=== PATIENT | female | born 1985 | race Caucasian/White ===

== ENCOUNTER 2020-04-24 17:05 | Observation (INO) ==
--- OUTSIDE RECORDS SUMMARY | 2020-04-24 17:09 | External Medical Summary | Continuity of Care Document ---
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 83) (O24.419) Grand multiparity with current in third trimester (659.43) (O09.43) Post term over 40 weeks (645.10) (O48.0) Supervision of high-risk with grand multiparity in third trimester (V23.3) (O09.43) Allergies and Adverse Reactions No Known Drug Allergies (Allergy) Medications Vitamins Suzanne ANDERSON Refills: 0 Procedures History of Sinus Surgery Status: Complet ed History of Supervision of normal Status: Completed History of wisdom tooth extraction Statu s: Completed Immunizations Immunizations not documented Family History Unknown Family Member No pertinent family history (V49.89) (Z78.9) Status: Active Comments: Family History Social History - Smoking Status Never smoked tobacco Plan of Treatment Planned Observations Planned Goals not documented Results No Known Results Results not documented
[2020-04-24] MEDS ORDERED: SODIUM CHLORIDE 0.9% 250 ML IV PRN ×2 (17:22→18:00)
[2020-04-24] MEDS ORDERED: SODIUM CHLORIDE 0.9% 1000ML 1,000 ML IV ONE (17:22)
--- NOTE | 2020-04-24 17:27 | Emergency Department Note ---
Impression & Plan Incomplete , Maternal hemorrhaging affecting delivery, COVID-19 ED Provider Note NAME: KARYNA NEGRON AGE: 34 SEX: F : 1985 ARRIVES VIA: Ambulance INFORMANT: Patient ED PROVIDER(S): Elieser Cisse DO CHIEF COMPLAINT: Vaginal bleeding HPI: Patient is a 34-year-old female G7, P6 with a last menstrual period on January 22 and expected due date of October 29 has been following with glaucoma specialist at home who presents the ER with vaginal bleeding that started last night. Manager Background was unable to to obtain heart rate this past Tuesday. Cramping vaginal bleeding started last night. [place] like a normal period in through about 2 PM today. Since then she has been actively bleeding and passing clots. She denies any headache or chest pain. No shortness of breath nausea vomiting or diarrhea. No other exacerbating or remitting factors. ROS: See above HPI for pertinent positives & negatives. A total of 10 systems reviewed and were otherwise negative. PAST MEDICAL HISTORY:See Below PAST SURGICAL HISTORY:See Below FAMILY HISTORY:See Below SOCIAL HISTORY:See Below HOME MEDICATIONS:See Below ALLERGIES:See Below VITALS:See Below PHYSICAL EXAMINATION: GENERAL: Sitting up in bed, alert, moderate distress, large amount of blood in the vaginal region EYE EXAM: normal conjunctiva. OROPHARYNX: no exudate, no erythema, lips, buccal mucosa, and tongue normal and mucous membranes are moist NECK: supple, no nuchal rigidity, no adenopathy, non-tender LUNGS: Clear to auscultation. Normal chest wall mechanics HEART: no murmurs, S1 normal and S2 normal ABDOMEN: abdomen soft, non-tender, normo-active bowel sounds, no masses, no rebound or guarding. : External genitalia is covered in blood and clots. Vaginal vault with a large amount of clot which was removed with persistent vaginal bleeding. Unable to visualize cervix. Performed with [place] at bedside UPPER EXTREMITIES: upper extremities are grossly normal. LOWER EXTREMITIES: No pitting edema. NEURO EXAM: Normal sensorium, cranial nerves II-XII grossly intact, normal speech, no gross weakness of arms, no gross weakness of legs. MEDICAL DECISION MAKING: Patient is a 34-year-old female who presents the ER for vaginal bleeding. G7, P6 with a likely current miscarriage. I present the bedside and performed pelvic exam and removed a large amount of clot. The vaginal vault continue to fill with blood. ENGRAVINGS POLISHER was immediately called. Discussed with Dr. Kimball who presented to bedside. 2 IVs were established 18-gauge is. Vitals showed a mild tachycardia. Patient was typed and crossed for 2 units. Labs show no significant leukocytosis or anemia. Hemoglobin was 12.5. INR was unremarkable. Denies any blood thinners. BMP with slightly elevated chloride. LFTs bilirubin was unremarkable. Following being evaluated by Dr. Kimball he called the OR. I ordered Covid tests which eventually came back positive once the patient was in the OR. I wore the appropriate PPE while the patient was down in the ER. Dr. Jordan requested 2 units PRBCs. I called down to the blood bank and they were still trying to type and cross the patient. At this time we requested O- blood. This was taken emergently to the OR has the patient was taken emergently to the OR. One of our techs from down to the blood bank and took up O- blood directly to the OR. Patient was consented by Dr. Kimball. Triage Nursing notes reviewed. Prior medical records reviewed Vital Signs: reviewed and remarkable for tachy Differential diagnosis: Differential diagnoses includes but is not limited to appendicitis, diverticulitis, small bowel obstruction, malignancy, hernia, urinary tract infection, torsion, and ectopic (if female), perforation, trauma, infectious. ER treatment provided: See below Diagnostics interpreted by me: ECG: none Cardiac Monitoring: An order was placed for continuous cardiac monitoring. The monitor shows a rate of 108 with sinus rhythm. Laboratory studies: As stated above and show below. Imaging studies: See below Consultation(s): Discussed with Dr. Kimball to evaluate the patient at bedside took patient emergently to the OR ED COURSE: Procedures: none Critical Care: I have personally spent 32 minutes of critical care time in the direct management of this patient. This includes bedside care, interpretation of diagnostic studies, and testing, discussion with consultants, patient, and family members, and other required patient management activities. This 32 minutes is in excess of all separately billable procedures. Past Med/Surg History Medical History (Updated 04/24/20 @ 20:17 by Elieser Cisse DO) Gestational diabetes Social History Smoking Status: Never smoker Feels Safe at Home: Yes Allergies Allergies Allergy/AdvReac Type Severity Reaction Status Date / Time No Known Allergies Allergy Verified 06/11/15 16:12 Home Meds Home Medications Medication Instructions Recorded Confirmed Multivit/Min/Iron/Fol Ac/Pren #0 06/11/06 ( Vitamin) Results & Data (ED) Vital Signs Vital Signs - 24 hr 04/24/20 17:13 04/24/20 18:07 04/24/20 19:05 Temperature 36.5 C 36.2 C L Temperature Source Oral Oral Pulse Rate 106 H 106 H Pulse Rate [Apical] 90 Pulse Rhythm [Apical] Regular Respiratory Rate 18 19 15 Respiratory Effort / Characteristics Non-Labored Non-Labored Spontaneous Respiratory Depth Normal Normal Respiratory Pattern Regular Blood Pressure 110/76 111/81 Blood Pressure [Left Arm] 105/71 Blood Pressure Mean 87 Blood Pressure Mean [Left Arm] 82 Blood Pressure Position [Left Arm] Lying Pulse Oximetry 97 98 100 Oxygen Delivery Method Room Air Nasal Cannula Oxygen Flow Rate 2 Sepsis Recent Fever Within 48 Hours No Sepsis New/Unexplained Change in Mental Status N/A Sepsis Action Taken by Nursing No Action Required 04/24/20 19:15 04/24/20 19:25 04/24/20 19:35 Temperature 36.9 C Temperature Source Temporal Artery Scan Temporal Artery Scan Oral Pulse Rate Pulse Rate [Apical] 90 88 84 Pulse Rhythm [Apical] Regular Regular Regular Respiratory Rate 18 16 15 Respiratory Effort / Characteristics Non-Labored Spontaneous Non-Labored Spontaneous Non-Labored Spontaneous Respiratory Depth Normal Normal Normal Respiratory Pattern Regular Regular Regular Blood Pressure Blood Pressure [Left Arm] 109/78 113/75 105/78 Blood Pressure Mean Blood Pressure Mean [Left Arm] 88 87 87 Blood Pressure Position [Left Arm] Lying Lying Lying Pulse Oximetry 100 100 100 Oxygen Delivery Method Nasal Cannula Nasal Cannula Nasal Cannula Oxygen Flow Rate 2 2 2 Sepsis Recent Fever Within 48 Hours Sepsis New/Unexplained Change in Mental Status Sepsis Action Taken by Nursing 04/24/20 19:45 04/24/20 19:55 Temperature Temperature Source Pulse Rate Pulse Rate [Apical] 82 92 H Pulse Rhythm [Apical] Regular Regular Respiratory Rate 15 15 Respiratory Effort / Characteristics Non-Labored Spontaneous Non-Labored Spontaneous Respiratory Depth Normal Normal Respiratory Pattern Regular Regular Blood Pressure Blood Pressure [Left Arm] 108/67 109/61 Blood Pressure Mean Blood Pressure Mean [Left Arm] 80 77 Blood Pressure Position [Left Arm] Lying Lying Pulse Oximetry 100 100 Oxygen Delivery Method Nasal Cannula Nasal Cannula Oxygen Flow Rate 2 2 Sepsis Recent Fever Within 48 Hours Sepsis New/Unexplained Change in Mental Status Sepsis Action Taken by Nursing Laboratory Data Result diagrams: 04/24/20 17:25 04/24/20 17:25 Lab Results 04/24/20 04/24/20 04/24/20 Range/Units 17:25 17:25 17:25 WBC 7.03 (4.8-10.8) K/uL RBC 4.11 L (4.2-5.4) M/uL Hgb 12.5 (12.0-16.0) g/dL POC Hgb (12.0-16.0) g/dl Hct 38.3 (37-47) % POC Hct (37-47) % MCV 93.2 (80-100) fL MCH 30.4 (25-34) pg MCHC 32.6 (32-36) g/dL RDW Std Deviation 46.1 (36.4-46.3) fL RDW Coeff of Mike 13.5 (11.5-14.5) % Plt Count 197 (130-400) K/uL MPV 10.7 H (7.4-10.4) fL Immature Gran % (Auto) 0.1 % Neut % (Auto) 76.6 % Lymph % (Auto) 13.5 % [place] % (Auto) 6.4 % Eos % (Auto) 3.3 % Baso % (Auto) 0.1 % Neut # (Auto) 5.38 (1.4-6.5) K/uL Lymph # (Auto) 0.95 L (1.2-3.4) K/uL [place] # (Auto) 0.45 (0.11-0.59) K/uL Eos # (Auto) 0.23 (0-0.5) K/uL Baso # (Auto) 0.01 (0-0.2) K/uL Immature Gran # (Auto) 0.01 (0.00-0.02) K/uL PT 10.9 (9.0-12.0) Seconds INR 1.0 (0.9-1.1) APTT 25.2 (21.0-31.0) Seconds PTT Ratio 0.9 POC Sodium (135-144) mmol/L Sodium (136-145) mmol/L POC Potassium (3.3-5.0) mmol/L Potassium (3.5-5.1) mmol/L POC Chloride (101-112) mmol/L Chloride (98-107) mmol/L Carbon Dioxide (21-32) mmol/L POC Total CO2 (24-31) mmol/L Anion Gap (3-11) POC Anion Gap (16-25) mmol/L POC BUN (7-18) mg/dl BUN (7-18) mg/dl Creatinine (0.6-1.2) mg/dl POC Creatinine (0.6-1.3) mg/dl Est Cr Clr Drug Dosing Est GFR ( Amer) Est GFR (Non-Af Amer) BUN/Creatinine Ratio (10-20) Glucose (70-99) mg/dl POC Glucose (other) (70-99) mg/dl Calcium (8.5-10.1) mg/dl POC Ioniz Calcium Alonso (1.12-1.32) mmol/l Total Bilirubin (0.2-1) mg/dl AST (15-37) U/L ALT (12-78) U/L Alkaline Phosphatase (45-117) U/L Total Protein (6.4-8.2) gm/dl Albumin (3.4-5.0) gm/dl Globulin (2.5-4.0) gm/dl Albumin/Globulin Ratio (0.9-2) HCG, Quant mIU/ml COVID-19 Eval Order SARS-CoV-2, RNA, NAAT (NEGATIVE) Blood Type AB Positive Antibody Screen NEGATIVE Crossmatch See Detail 04/24/20 04/24/20 04/24/20 Range/Units 17:25 17:25 18:03 WBC (4.8-10.8) K/uL RBC (4.2-5.4) M/uL Hgb (12.0-16.0) g/dL POC Hgb (12.0-16.0) g/dl Hct (37-47) % POC Hct (37-47) % MCV (80-100) fL MCH (25-34) pg MCHC (32-36) g/dL RDW Std Deviation (36.4-46.3) fL RDW Coeff of Mike (11.5-14.5) % Plt Count (130-400) K/uL MPV (7.4-10.4) fL Immature Gran % (Auto) % Neut % (Auto) % Lymph % (Auto) % [place] % (Auto) % Eos % (Auto) % Baso % (Auto) % Neut # (Auto) (1.4-6.5) K/uL Lymph # (Auto) (1.2-3.4) K/uL [place] # (Auto) (0.11-0.59) K/uL Eos # (Auto) (0-0.5) K/uL Baso # (Auto) (0-0.2) K/uL Immature Gran # (Auto) (0.00-0.02) K/uL PT (9.0-12.0) Seconds INR (0.9-1.1) APTT (21.0-31.0) Seconds PTT Ratio POC Sodium (135-144) mmol/L Sodium 140 (136-145) mmol/L POC Potassium (3.3-5.0) mmol/L Potassium 3.6 (3.5-5.1) mmol/L POC Chloride (101-112) mmol/L Chloride 109 H (98-107) mmol/L Carbon Dioxide 26 (21-32) mmol/L POC Total CO2 (24-31) mmol/L Anion Gap 5.0 (3-11) POC Anion Gap (16-25) mmol/L POC BUN (7-18) mg/dl BUN 17 (7-18) mg/dl Creatinine 0.50 L (0.6-1.2) mg/dl POC Creatinine (0.6-1.3) mg/dl Est Cr Clr Drug Dosing Not Reportable Est GFR ( Amer) 145.3 Est GFR (Non-Af Amer) 125.4 BUN/Creatinine Ratio 33.5 H (10-20) Glucose 91 (70-99) mg/dl POC Glucose (other) (70-99) mg/dl Calcium 8.2 L (8.5-10.1) mg/dl POC Ioniz Calcium Alonso (1.12-1.32) mmol/l Total Bilirubin 0.3 (0.2-1) mg/dl AST 11 L (15-37) U/L ALT 20 (12-78) U/L Alkaline Phosphatase 35 L (45-117) U/L Total Protein 6.1 L (6.4-8.2) gm/dl Albumin 3.2 L (3.4-5.0) gm/dl Globulin 2.8 (2.5-4.0) gm/dl Albumin/Globulin Ratio 1.1 (0.9-2) HCG, Quant 2640 mIU/ml COVID-19 [facility] SARS-CoV-2, RNA, NAAT (NEGATIVE) Blood Type Antibody Screen Crossmatch 04/24/20 04/24/20 Range/Units 18:03 18:18 WBC (4.8-10.8) K/uL RBC (4.2-5.4) M/uL Hgb (12.0-16.0) g/dL POC Hgb 9.9 L (12.0-16.0) g/dl Hct (37-47) % POC Hct 29 L (37-47) % MCV (80-100) fL MCH (25-34) pg MCHC (32-36) g/dL RDW Std Deviation (36.4-46.3) fL RDW Coeff of Mike (11.5-14.5) % Plt Count (130-400) K/uL MPV (7.4-10.4) fL Immature Gran % (Auto) % Neut % (Auto) % Lymph % (Auto) % [place] % (Auto) % Eos % (Auto) % Baso % (Auto) % Neut # (Auto) (1.4-6.5) K/uL Lymph # (Auto) (1.2-3.4) K/uL [place] # (Auto) (0.11-0.59) K/uL Eos # (Auto) (0-0.5) K/uL Baso # (Auto) (0-0.2) K/uL Immature Gran # (Auto) (0.00-0.02) K/uL PT (9.0-12.0) Seconds INR (0.9-1.1) APTT (21.0-31.0) Seconds PTT Ratio POC Sodium 138 (135-144) mmol/L Sodium (136-145) mmol/L POC Potassium 3.6 (3.3-5.0) mmol/L Potassium (3.5-5.1) mmol/L POC Chloride 107 (101-112) mmol/L Chloride (98-107) mmol/L Carbon Dioxide (21-32) mmol/L POC Total CO2 21 L (24-31) mmol/L Anion Gap (3-11) POC Anion Gap 14.0 L (16-25) mmol/L POC BUN 15 (7-18) mg/dl BUN (7-18) mg/dl Creatinine (0.6-1.2) mg/dl POC Creatinine 0.4 L (0.6-1.3) mg/dl Est Cr Clr Drug Dosing Est GFR ( Amer) Est GFR (Non-Af Amer) BUN/Creatinine Ratio (10-20) Glucose (70-99) mg/dl POC Glucose (other) 94 (70-99) mg/dl Calcium (8.5-10.1) mg/dl POC Ioniz Calcium Alonso 1.15 (1.12-1.32) mmol/l Total Bilirubin (0.2-1) mg/dl AST (15-37) U/L ALT (12-78) U/L Alkaline Phosphatase (45-117) U/L Total Protein (6.4-8.2) gm/dl Albumin (3.4-5.0) gm/dl Globulin (2.5-4.0) gm/dl Albumin/Globulin Ratio (0.9-2) HCG, Quant mIU/ml COVID-19 Eval Order SARS-CoV-2, RNA, NAAT POSITIVE A* (NEGATIVE) Blood Type Antibody Screen Crossmatch Discharge Plan Visit Data Chief Complaint: Vaginal Bleeding Stated Complaint: VAG BLEEDING ED Provider: Elieser Cisse Discharge Problem: Incomplete , Maternal hemorrhaging affecting delivery, COVID-19 Discharge Instructions Interventions: ED Discharge Assessment Last Done: 04/24/20 18:07
[2020-04-24 17:35] LABS: Basophils # (auto) 0.01 K/uL (0-0.2); Basophils % (auto) 0.1 %; Eosinophils # (auto) 0.23 K/uL (0-0.5); Eosinophils % (auto) 3.3 %; Hematocrit (blood only) 38.3 % (37-47); Hemoglobin 12.5 g/dL (12.0-16.0); Immature Granulocytes # (auto) 0.01 K/uL (0.00-0.02); Immature Granulocytes % (auto) 0.1 %; Lymphocytes # (auto) 0.95 K/uL (1.2-3.4); Lymphocytes % (auto) 13.5 %; Mean Corpuscular Hemoglobin 30.4 pg (25-34); Mean Corpuscular Hgb Conc 32.6 g/dL (32-36); Mean Corpuscular Volume 93.2 fL (80-100); Mean Platelet Volume 10.7 fL (7.4-10.4); Monocytes # (auto) 0.45 K/uL (0.11-0.59); Monocytes % (auto) 6.4 %; Neutrophils # (auto) 5.38 K/uL (1.4-6.5); Neutrophils % (auto) 76.6 %; Platelet Count 197 K/uL (130-400); RDW Coefficient of Variation 13.5 % (11.5-14.5); RDW Standard Deviation 46.1 fL (36.4-46.3); Red Blood Count 4.11 M/uL (4.2-5.4); White Blood Count 7.03 K/uL (4.8-10.8)
[2020-04-24 17:49] LABS: Partial Thromboplastin Ratio 0.9; Partial Thromboplastin Time 25.2 Seconds (21.0-31.0); Prothrombin Time 10.9 Seconds (9.0-12.0)
[2020-04-24 17:56] LABS: Alanine Aminotransferase 20 U/L (12-78); Albumin Level 3.2 gm/dl (3.4-5.0); Aspartate Aminotransferase 11 U/L (15-37); BUN Creatinine Ratio 33.5 (10-20); Blood Urea Nitrogen 17 mg/dl (7-18); Calcium 8.2 mg/dl (8.5-10.1); Carbon Dioxide 26 mmol/L (21-32); Chloride 109 mmol/L (98-107); Est GFR (African American) 145.3; Est GFR (Non-African American) 125.4; Glucose 91 mg/dl (70-99); Potassium 3.6 mmol/L (3.5-5.1); Sodium 140 mmol/L (136-145)
[2020-04-24 17:59] LABS: Albumin Globulin Ratio 1.1 (0.9-2); Alkaline Phosphatase 35 U/L (45-117); Bilirubin,Total 0.3 mg/dl (0.2-1); Globulin 2.8 gm/dl (2.5-4.0); Total Protein 6.1 gm/dl (6.4-8.2)
[2020-04-24] MEDS ORDERED: ONDANSETRON INJ 2 MG/ML 2 ML VIAL ONE (18:03)
[2020-04-24] MEDS ORDERED: GLYCOPYRROLATE 0.2 MG/ML VIAL ONE (18:03)
[2020-04-24] MEDS ORDERED: LIDOCAINE HCL 2% 2 ML VIAL/AMP(20MG/ML) INFIL ONE (18:03)
[2020-04-24] MEDS ORDERED: NEOSTIGMINE METHYLSULFATE 5 MG/5 ML SYR ONE (18:03)
[2020-04-24] MEDS ORDERED: MIDAZOLAM HCL 1 MG/ML 2ML VIAL ONE (18:03)
[2020-04-24] MEDS ORDERED: fentaNYL citrate 100 MCG/2 ML VIAL ONE (18:03)
[2020-04-24] MEDS ORDERED: PROPOFOL IV EMULSION 10 MG/ML 20 ML VIAL IV ONE (18:03)
[2020-04-24] MEDS ORDERED: DEXAMETHASONE SOD INJ 4 MG/ML VIAL ONE (18:03)
[2020-04-24] MEDS ORDERED: OXYTOCIN 10 UNITS/ML VIAL ONE (18:25)
[2020-04-24] MEDS ORDERED: IBUPROFEN 600 MG TAB PO PRN (19:00)
[2020-04-24] MEDS ORDERED: KETOROLAC 30 MG/ML VIAL IV PRN (19:00)
[2020-04-24] MEDS ORDERED: ONDANSETRON INJ 2 MG/ML 2 ML VIAL IV PRN ×2 (19:00→19:28)
--- NOTE | 2020-04-24 19:19 | Post Operative Brief Note ---
PG Immediate Post Op with CF Date of Surgery April 24, 2020 Pre & Post Diagnosis Operation Date: 04/24/20 18:05 Pre-Op Diagnosis: Missed ; Maternal Hemorrhage Post-Op Diagnosis: Procedure performed suction Dilation and Evacuation I identified the patient and participated in the time-out.: Yes Procedure Operation Date: 04/24/20 18:05 Actual Procedures p Dilation and Evacuation(Not Applicable) - Mark Anthony Kimball Jr, MD, FACOG Surgeon Mark Anthony Kimball Jr, MD, FACOG Supervisor [employer] None Estimated Blood Loss 200 Findings See Below (Exam under anesthesia revealed a 12-week size anterior boggy uterus products of conception removed with the suction Pipelle as well as uterine curette. Notified of positive Covid status during procedure) Specimens Specimen Description: A. Products of Conception
--- NOTE | 2020-04-24 19:19 | History & Physical Report ---
Date of Service April 24, 2020 Assessment & Plan (1) Maternal hemorrhaging affecting delivery: The patient is bleeding profusely and I am unable to adequately evaluate the cervix and uterus in the emergency room. Estimated blood loss for the time that I have been present in the emergency room is 750 cc. The patient's hemoglobin on admission is 12.5 but she has now become tachycardic and is pale in appearance. I think the patient is in need of a stat evacuation of uterine contents. In addition with the rapid blood loss she may require transfusion. We are going to take the patient immediately to the operating room for evacuation of uterine contents. I have briefly reviewed the risk benefits and alternatives to the procedure and a surgical permit has been signed. History of Present Illness Chief Complaint: Miscarrying Primary Care Provider: Saw Helm MD The patient is a 34-year-old 8 para 6, last menstrual period of 22 January, at approximately 12 weeks gestational age, who was brought to the emergency room hemorrhaging from the miscarriage. The patient states that she started to bleed during the day and it became increasingly heavy with the passages of clots. She called the ambulance to bring her to the emergency room. The patient has not been seen in our practice since her delivery in January 2018. That had been remarkable for gestational diabetes. The patient states that she has been getting some care this from a late grounds crew supervisor. She has not had any blood work done during this . Her previous pregnancies were remarkable for gestational diabetes. The patient was not complaining of any upper respiratory symptoms or fever. The patient was evaluated initially by the emergency room physician, she was copiously bleeding, and I was asked to evaluate the patient. Allergies Allergy/AdvReac Type Severity Reaction Status Date / Time No Known Allergies Allergy Verified 06/11/15 16:12 Home Medications Home Medications Medication Instructions Recorded Confirmed Type Multivit/Min/Iron/Fol Ac/Pren #0 06/11/06 History ( Vitamin) Patient History Social History Smoking Status: Unknown if ever smoked Feels Safe at Home: Yes Physical Exam Constitutional: The patient appears pale but is appropriately responsive Gastrointestinal (Abdomen): A fundus cannot be palpated abdominally Genitourinary: normal external appearance Speculum/Bimanual Exam: + abnormal uterine size (10 to 12-week size) and + vaginal bleeding (Profuse vaginal bleeding with multiple clots); + abnormal appearance of the cervix (Cervical os is dilated to manual palpation but difficult to visualize secon) and no adnexal mass Lymphatic: no inguinal lymphadenopathy Results & Data ([facility]) Vital Signs (Past 12 Hours) Vital Signs Temp Pulse Resp BP Pulse Ox 04/24/20 18:07 106 H 19 111/81 98 04/24/20 17:13 97.7 F 106 H 18 110/76 97 Coding Level of Care Code 04496 OBS Care - Level 3 Diagnoses Maternal hemorrhaging affecting delivery O67.9
[2020-04-24] MEDS ORDERED: ATROPINE SULFATE 0.1 MG/ML 10ML SYR IV PRN (19:28)
[2020-04-24] MEDS ORDERED: fentaNYL citrate 100 MCG/2 ML VIAL IV PRN (19:28)
[2020-04-24] MEDS ORDERED: HYDROmorphone INJ 1 MG/ML SYRINGE IV PRN (19:28)
[2020-04-24] MEDS ORDERED: LABETALOL HCL IV 5 MG/ML 20ML IV PRN (19:28)
[2020-04-24] MEDS ORDERED: ePHEDrine sulfate 50 MG/ML AMP IV PRN (19:28)
[2020-04-24] MEDS ORDERED: PHENYLEPHRINE 100MCG/ML 5ML SYR IV PRN (19:28)
[2020-04-24] MEDS ORDERED: MEPERIDINE HCL 25 MG/ML CARP/VIAL IV PRN (19:28)
--- NOTE | 2020-04-24 19:40 | Anesthesiology Consultation ---
Date of Service April 24, 2020 The patient was emergently transported directly to OR [address] Kimball from the ER due to extensive bleeding from a 12 week missed AB. There was no time to set up OR 1. A rapid Covid 19 test had been performed but the results had not come back. The first time I met the patient was in the operating room. Full PPE including gown, mask, and N95 were donned by myself and the nurse anesthetists prior to the patient entering the OR. The patient stated that she had a history of gestational DM but no other significant medical issues. She had no cough or sob. She had eaten at 1515. Consent was obtained from the patient. The patient underwent RSI. After intubation, the ER called the room to tell us that the patient tested positive for Covid 19. Assessment & Plan (1) Encounter for pre-operative examination: Chart Review Chart Review: Acceptable Risk for Surgery (emeregency procedure) and Patient NOT seen in Pre Admission Testing Consults Requested none ASA ASA2 Proposed Anesthesia Anesthesia Type: General Risk / Benefits Reviewed With: PT / POA / Parent / Guardian, Accepts Plan and Informed Consent Obtained History Surgery Operation Date: 04/24/20 18:05 Proposed Procedures p Dilation and Evacuation - Mark Anthony Kimball Jr, MD, FACOG Allergies Allergy/AdvReac Type Severity Reaction Status Date / Time No Known Allergies Allergy Verified 06/11/15 16:12 Medications Home Medications Medication Instructions Recorded Confirmed Last Taken Multivit/Min/Iron/Fol Ac/Pren #0 06/11/06 Unknown ( Vitamin) NPO Date Last Intake of Fluids: 04/24/20 Time Last Intake of Fluids: 15:15 Date Last Intake of Solids: 04/24/20 Time Last Intake of Solids: 15:15 Past Medical History Medical History (Updated 04/24/20 @ 19:47 by Eyad Larson MD) Gestational diabetes Exercise / Class Metabolic Activity II 4-5 Yardwork/Stairs/Walk up hill Past Anesthesia History No Hx of Anesthesia Complications and No Family Hx of Anesthesia Complications History of PONV No Hx of PONV and No Hx of Motion Sickness Social History Smoking Status: Never smoker Review of Systems no chest pain or sob Physical Exam Vital Signs Last Vital Signs Temp 36.9 C 04/24/20 19:35 Pulse 82 04/24/20 19:45 Resp 15 04/24/20 19:45 BP 108/67 04/24/20 19:45 Pulse Ox 100 04/24/20 19:45 ENMT Mouth: + dental caries; no TMJ abnormality Thyromental Distance: > or= 3.5 Finger Breadths Mallampati Class: II Neck normal visual inspection Respiratory normal respiratory effort Auscultation: lungs clear to auscultation bilaterally Cardiovascular Rate/Rhythm: regular rate and regular rhythm Neurologic moves all extremities Psychiatric Orientation: alert and oriented x 3 Testing Laboratory Results 04/24/20 17:25 04/24/20 17:25 PT 10.9 Seconds (9.0-12.0) 04/24/20 17:25 INR 1.0 (0.9-1.1) 04/24/20 17:25 APTT 25.2 Seconds (21.0-31.0) 04/24/20 17:25 HCG, Quant 2640 mIU/ml 04/24/20 17:25 Blood Type AB Positive 04/24/20 17:25 Antibody Screen NEGATIVE 04/24/20 17:25 04/24/20 18:18 POC Glucose (other) 94 04/24/20 17:25 HCG, Quant 2640
[2020-04-24 19:45] LABS: iSTAT Creatinine 0.4 mg/dl (0.6-1.3); iSTAT Hemoglobin 9.9 g/dl (12.0-16.0); iSTAT Ionized Calcium 1.15 mmol/l (1.12-1.32); iSTAT Potassium 3.6 mmol/L (3.3-5.0)
--- NOTE | 2020-04-24 19:53 | Anesthesiology Progress Note ---
Date of Service April 24, 2020 Anesthesia Post Procedure Vital Signs Vital Signs: Temp Pulse Pulse Resp BP BP Pulse Ox 04/24/20 19:45 82 15 108/67 100 04/24/20 19:35 36.9 C 84 15 105/78 100 04/24/20 19:25 88 16 113/75 100 04/24/20 19:15 90 18 109/78 100 04/24/20 19:05 36.2 C L 90 15 105/71 100 04/24/20 18:07 106 H 19 111/81 98 04/24/20 17:13 36.5 C 106 H 18 110/76 97 Transfer of Care Handoff Completed per policy Notes Mental Status: alert / awake / arousable Patient Amnestic to Procedure: Yes Nausea / Vomiting: adequately controlled Pain: adequately controlled Airway Patency, RR, SpO2: stable & adequate BP & HR: stable & adequate Hydration State: stable & adequate Anesthetic Complications: no major complications apparent and Pt Satisfied with anesthetic care Notes: The patient was emergently taken to the OR. After intubation, the patient's rapid Covid 19 test came back positive. After the surgery was completed, the patient was transported while intubated with a blue filter on the end of the ETT to the negative pressure room in [facility]. She was extubated withou t incident in the negative pressure room.
[2020-04-24] MEDS: LACTATED RINGER'S 1,000 ML IV SCH (22:11)
--- NOTE | 2020-04-25 01:52 | Operative Report (OR) ---
DATE OF OPERATION: 04/24/2020 PREOPERATIVE DIAGNOSES: 1. Incomplete . 2. Maternal hemorrhage. POSTOPERATIVE DIAGNOSES: 1. Incomplete . 2. COVID-19 positive. PROCEDURE PERFORMED: Emergency D and E. SURGEON: Mark Anthony Kimball MD ANESTHESIA: General. FINDINGS: Exam under anesthesia revealed a 12-week size anterior boggy uterus. Products of conception removed with the suction curette as well as curettage. During procedure, notified of the patient's COVID-19 positive status. ESTIMATED BLOOD LOSS: For the procedure itself 200 mL. PROCEDURE IN DETAIL: The patient was taken to the operating room in a stat fashion for an emergency D and C. After general anesthesia, she was placed in a dorsal lithotomy position and prepped and draped in a sterile fashion. Bladder was drained of approximately 600 mL of urine. Weighted speculum was placed into the vagina and the anterior lip of the cervix was grasped with a tenaculum. The cervix was dilated allowing passage of a #12 suction curette. Two passes of the curette were performed to remove tissue and then a medium curette was introduced and all 4 quadrants of the uterus were thoroughly curettaged. Polyp forceps were introduced to remove any residual tissue. Repeat pelvic examination showed a small firm anterior uterus. At this point, there was notification received that the patient had tested positive for COVID upon her admission to the Emergency Room. The patient was observed and her bleeding was felt to be stable. She was taken out of dorsal lithotomy position. Because of the positive COVID status, extubation will need to be performed in a negative pressure room. Anesthesia assumed care for the patient at this point. I attest to the content of the Intraoperative Record and any orders documented therein. Any exception s are noted below.
[2020-04-25 06:18] LABS: Eosinophils # (auto) 0.02 K/uL (0-0.5); Eosinophils % (auto) 0.2 %; Hematocrit (blood only) 28.9 % (37-47); Hemoglobin 9.7 g/dL (12.0-16.0); Immature Granulocytes # (auto) 0.01 K/uL (0.00-0.02); Immature Granulocytes % (auto) 0.1 %; Lymphocytes # (auto) 0.96 K/uL (1.2-3.4); Lymphocytes % (auto) 10.5 %; Mean Corpuscular Hemoglobin 30.6 pg (25-34); Mean Corpuscular Hgb Conc 33.6 g/dL (32-36); Mean Corpuscular Volume 91.2 fL (80-100); Mean Platelet Volume 10.7 fL (7.4-10.4); Monocytes # (auto) 0.49 K/uL (0.11-0.59); Monocytes % (auto) 5.3 %; Neutrophils # (auto) 7.68 K/uL (1.4-6.5); Neutrophils % (auto) 83.9 %; Platelet Count 198 K/uL (130-400); RDW Coefficient of Variation 13.3 % (11.5-14.5); RDW Standard Deviation 44.6 fL (36.4-46.3); Red Blood Count 3.17 M/uL (4.2-5.4); White Blood Count 9.16 K/uL (4.8-10.8)
[2020-04-25] MEDS: LACTATED RINGER'S 1,000 ML IV SCH (06:25)
--- NOTE | 2020-04-25 06:27 | Gynecologic Progress Note ---
Date of Service April 25, 2020 Assessment & Plan (1) Incomplete : - pathology pending - bleeding stable (2) Maternal hemorrhaging affecting delivery: - Hgb this AM stable - no orthostatic changes - will d/c home - po iron - f/u 1 month (3) COVID-19: - explained dx to patient - the importance of quarantine at home stressed - if she develops sx's, she should contact her PCP Admission and Anticipated Discharge Date Admission Date: April 24, 2020 Subjective No c/o light headedness or other orthostatic changes. Mild bleeding Physical Exam Constitutional: WD/WN, vitals as above Gastrointestinal (Abdomen): normal bowel sounds, soft, nontender, no hepatosplenomegaly Lymphatic: no inguinal lymphadenopathy Results & Data ([facility]) Vital Signs (Past 12 Hours) Vital Signs Temp Pulse Pulse Resp BP Pulse Ox 04/25/20 03:25 97.9 F 90 18 101/69 97 04/24/20 23:40 99.0 F 94 H 16 100/64 93 04/24/20 22:20 98.6 F 88 16 96/61 L 95 04/24/20 21:25 99.3 F 101 H 16 103/68 97 04/24/20 20:50 98.6 F 95 H 16 106/71 95 04/24/20 20:20 98.4 F 93 H 16 100/65 96 04/24/20 19:55 92 H 15 109/61 100 04/24/20 19:45 82 15 108/67 100 04/24/20 19:35 98.4 F 84 15 105/78 100 04/24/20 19:25 88 16 113/75 100 04/24/20 19:15 90 18 109/78 100 04/24/20 19:05 97.2 F L 90 15 105/71 100 PG Care Time/CCT Total # of Minutes Spent Total Time Spent with Patient: Total time spent is greater than 50% in coordination of care (as documented) at patient's floor/unit and/or counseling patient: Coding Level of Care Code None Diagnoses Incomplete O03.4 Maternal hemorrhaging affecting delivery O67.9 COVID-19 U07.1
--- NOTE | 2020-04-25 07:37 | Discharge Summary ---
Date of Service April 25, 2020 Admission HPI Per Admitting Provider The patient is a 34-year-old 8 para 6, last menstrual period of 22 January, at approximately 12 weeks gestational age, who was brought to the emergency room hemorrhaging from the miscarriage. The patient states that she started to bleed during the day and it became increasingly heavy with the passages of clots. She called the ambulance to bring her to the emergency room. The patient has not been seen in our practice since her delivery in January 2018. That had been remarkable for gestational diabetes. The patient states that she has been getting some care this from a late hostess host. She has not had any blood work done during this . Her previous pregnancies were remarkable for gestational diabetes. The patient was not complaining of any upper respiratory symptoms or fever. The patient was evaluated initially by the emergency room physician, she was copiously bleeding, and I was asked to evaluate the patient. Discharge Data Consultations 04/25/20 05:44 Consult Case Management - Discharge Planning Routine Procedures Performed Operation Date: 04/24/20 18:05 Actual Procedures p Dilation and Evacuation(Not Applicable) - Mark Anthony Kimball Jr, MD, [facility] (1) Maternal hemorrhaging affecting delivery: After attempting to remove the products of conception in the emergency room, the patient's bleeding necessitated an emergent D&C. The patient was rushed to the operating room where she underwent a D&C under general anesthesia. The cervical os was dilated and products of conception were removed with the suction curette as well as with a sharp curettage. During the intraoperative process the patient's COVID-19 came back positive which had been collected in the emergency room. While the blood loss for the actual D&C was probably 200 cc, for the entire hospitalization it was somewhere between 750-1000. Following the D&C the patient was extubated in a negative pressure room and then sent to a negative pressure room for observation. She was watched postoperatively for orthostatic symptoms that would require transfusion. Her hemoglobin on admission was 12.5 and had dropped to 9.7. The patient did well postoperatively. She was ambulating without difficulty with minimal bleeding and was tolerating a regular diet. The patient was requesting immediate discharge on the morning after surgery. Discharge instructions were given and the patient will follow-up in 1 month for a postoperative check. (2) COVID-19: The patient was notified of her positive COVID-19 status. The patient claims to be asymptomatic. It was discussed with the patient the importance of a home quarantine for 14 days. Her family should also participate in the quarantine. It was discussed with the patient should develop symptoms and signs of respiratory distress, she should contact her primary care provider. All questions answered of the patient. Coding Level of Care Code None Diagnoses Maternal hemorrhaging affecting delivery O67.9 COVID-19 U07.1
== END 2020-04-25 09:55 | disposition home or self-care (01) ==
LOC: ED 17:05 → OR 18:10 → 3N 18:10